=== PATIENT | female | born 1940 | race Caucasian/White ===

== ENCOUNTER 2017-06-17 17:43 | Emergency (ER) | payer OTHER ==
[~2017-06-17] VITALS: Ht 160 cm; Wt 117.7 kg
[2017-06-17 18:26] LABS: MCH 30.1 PG (29.0-34.0); MCHC 33.3 G/DL (30.0-36.0); MCV 90.3 FL (83-99); MEAN PLAT.VOLUME 9.9 uM^3 (9.5-12.4); PLATELET COUNT 220 K/uL (156-360); RBC DIS.WIDTH-CV 14.4 % (11.8-14.6); RBC DIS.WIDTH-SD 47.8 % (39-53); RED BLOOD COUNT 4.32 M/uL (3.80-5.20); WHITE BLOOD COUNT 9.3 K/uL (4.1-10.2)
[2017-06-17 18:33] LABS: CHLORIDE 107 mEq/L (99-109); POTASSIUM 4.7 mEq/L (3.7-5.4); SODIUM 141 mEq/L (136-147)
[2017-06-17 18:35] LABS: GLUCOSE 126 mg/dL (70-99)
[2017-06-17 18:36] LABS: ANION GAP 11 MEQ/L (2-14)
[2017-06-17 18:39] LABS: GFR ESTIMATE (CALCULATED) 39 mL/min/
[2017-06-17 18:40] LABS: UREA NITROGEN (BUN) 22 mg/dL (9-23)
[2017-06-17 19:43] LABS: ADD MIUA? YES; BILIRUBIN NEGATIVE; BLOOD NEGATIVE; COLOR YELLOW ((YELLOW)); GLUCOSE (STRIP) NEGATIVE; KETONES NEGATIVE; LEUKOCYTES MODERATE; NITRITE NEGATIVE; PROTEIN (STRIP) NEGATIVE; SPECIFIC GRAVITY 1.016 (1.000-1.030); UROBILINOGEN 0.2 MG/DL (0.2-1.0)
[2017-06-17 19:58] LABS: BACTERIA NONE SEEN /HPF; EPITHELIAL CELLS RARE /HPF; MUCUS TRACE /LPF; RED BLOOD CELLS 0-5 /HPF (0-5); WHITE BLOOD CELLS 20-30 /HPF (0-5)
[2017-06-17] MEDS ORDERED: NORCO 5/3251 TABLET PO (20:34)
[2017-06-17] MEDS ORDERED: AUGMENTIN875 MG PO (20:34)
[2017-06-17 20:57] VITALS: BP 136/72
== END 2017-06-17 20:58 | disposition home or self-care (01) ==
LOC: EME 17:43
PROVIDERS: Emergency Medicine
DX: K57.32 Diverticulitis of large intestine without perforation or abscess without bleeding (principal); K76.0 Fatty (change of) liver, not elsewhere classified; I10 Essential (primary) hypertension
CPT/HCPCS: 74177; 80048; 81003; 85027; 99281; 99285; J3010; J7030

== ENCOUNTER 2017-12-07 19:45 | Emergency (ER) | payer OTHER ==
[~2017-12-07] VITALS: Ht 160 cm; Wt 109.0 kg
[~2017-12-07 19:45] MED LIST: AUGMENTIN875 MG PO; NORCO 5/3251 TABLET PO
[2017-12-07 20:22] LABS: HEMATOCRIT 36.6 % (36.0-46.0); HEMOGLOBIN 12.3 G/DL (11.9-15.5); MCH 30.6 PG (29.0-34.0); MCHC 33.6 G/DL (30.0-36.0); PLATELET COUNT 222 K/uL (156-360); RBC DIS.WIDTH-CV 14.3 % (11.8-14.6); RBC DIS.WIDTH-SD 47.8 % (39-53); RED BLOOD COUNT 4.02 M/uL (3.80-5.20); WHITE BLOOD COUNT 5.7 K/uL (4.1-10.2)
[2017-12-07 20:38] LABS: CHLORIDE 106 MEQ/L (99-109); POTASSIUM 4.9 MEQ/L (3.7-5.4); SODIUM 139 MEQ/L (136-147)
[2017-12-07 20:43] LABS: CREATININE 1.5 MG/DL (0.6-1.3); GFR ESTIMATE (CALCULATED) 36 mL/min/; GLUCOSE 137 mg/dL (70-99); UREA NITROGEN (BUN) 18 mg/dL (9-23)
[2017-12-07] MEDS ORDERED: ROBITUSSIN AC,T10 ML PO (23:11)
[2017-12-07] MEDS ORDERED: DOXYCYCLINE HY100 MG PO (23:11)
[2017-12-07 23:37] VITALS: BP 133/84
== END 2017-12-07 23:38 | disposition home or self-care (01) ==
LOC: EME 19:45
DX: J44.1 Chronic obstructive pulmonary disease with (acute) exacerbation (principal); J20.9 Acute bronchitis, unspecified; J44.0 Chronic obstructive pulmonary disease with (acute) lower respiratory infection; I10 Essential (primary) hypertension; K21.9 Gastro-esophageal reflux disease without esophagitis
CPT/HCPCS: 71046; 80048; 85027; 94640; 99281; 99284